=== PATIENT | male | born 1995 ===

== ENCOUNTER 2022-11-10 09:23 | Emergency (ER) | payer SELFPAY ==
[2022-11-10 09:26] VITALS: BP 148/89; PULSE 102; RESP 16; TEMP 36.4
--- NOTE | 2022-11-10 11:10 | PC.NURSE ---
pt states he is going to postpone his visit. states his symptoms have lessened. if they worsen he states he will return or go to [place] since he works right around the corner
== END 2022-11-10 11:10 | disposition left against medical advice (07) ==
PROVIDERS: PCP Nurse Practitioner Family
DX: N50.82 Scrotal pain (principal)
CPT/HCPCS: 99199